=== PATIENT | female | born 1990 ===

== ENCOUNTER 2018-10-13 15:52 | Emergency (ER) | payer OTHER ==
[2018-10-13] MEDS ORDERED: Dextrose 5%/Lactated Ringer's 1,000 ML IV SCH (17:00)
--- NOTE | 2018-10-13 18:18 | OBHP ---
Datetime: 10/13/2018 16:18 IP Adm Impression: Term, intrauterine IP Chief Complaint Other: NST for dec fm Admit Comment, IP Provider: Patient is a 28 year old at 39w4d STEVIE 10/16/[birth year] who presents to the [facility] for NST by OBGYN (Dr Diana). Patient is doing well, offers no complaints at this time. States that she has been getting weekly NST/BPPs for low SIDNEY-A and low hCG. Endorses +FM, denies CTX, VB, LOF. Issues: Low SIDNEY-A, Low hCG on FTS Anemia on Iron supplementation PE: see above A/P: 28 year old at 39w4d for NST -CEFM and TOCO -BPP 8/8, DOLORES 8.2cm -We will observe until NST is reactive -Plan discussed with Dr Moon ivf fluids given ve ft nst 130 mod chris plan dc home labor ins counts f/u dr Champagne in 1 days Brea Barron DO PGY-2 Comments, ACOG Physical Exam: Gen: AAOx3 Abd: Soft, gravid Ext: No clubbing, cyanosis, edema IP Hx Assessment: The History has been Reviewed and is Current EGA AdmitDate IP: 39.4 IP Chief Complaint: Other
--- NOTE | 2018-10-13 18:19 | OBDCSUM ---
Datetime: 10/13/2018 18:15 Discharged to, Provider: Home Follow up at, Provider: 1 day Follow up in weeks, Provider: dr acosta Disch Activity Restrictions: No sexual activity; Nothing in vagina - [place], tampons, douche Discharge Comment, Provider: dc home labor ins counts f/u dr Champagne in 1 days Discharge Diagnosis Prov Other: nst 39we
[2018-10-14 11:36] VITALS: BP 93/54; PULSE 80; RESP 18; TEMP 98.7; O2SAT 99
== END 2018-10-13 18:24 | disposition home or self-care (01) ==
LOC: C.EROB 15:52
DX: Z36.89 Encounter for other specified antenatal screening (principal)
CPT/HCPCS: 99284; J7120